=== PATIENT | male | born 1995 | race Caucasian/White ===

== ENCOUNTER 2020-12-29 11:42 | Outpatient (CLI) | payer OTHER ==
[~2020-12-29 11:42] MED LIST: BUFFERED LIDOCAINE 10 ML SYRINGE ONE
[2020-12-29] MEDS ORDERED: GADOBUTROL 7.5 MMOL/7.5 ML VIAL ONE (12:02)
[2020-12-29] MEDS ORDERED: BUFFERED LIDOCAINE 10 ML SYRINGE IU ONE (12:43)
[2020-12-29] MEDS ORDERED: GADOBUTROL 7.5 MMOL/7.5 ML VIAL IVP ONE (12:44)
[2020-12-29] MEDS ORDERED: iohexoL-240 10 ML VIAL IVP ONE (12:45)
--- NOTE | 2020-12-29 14:03 | XRAY Report ---
PROCEDURE: Arthrogram Needle Placement INDICATIONS: LEFT SHOULDER INSTABILITY CONTRAST: CONTRAST: Gadavist, omni FLUOROSCOPY TIME: FLUORO TIME: 0.1 and NUMBER IMAGES: 1 TECHNIQUE: The indications, alternatives, benefits, risks, and complications of the procedure were explained to the patient. Written informed consent was obtained and placed in the chart. The shoulder was examin ed fluoroscopically and a site for needle placement chosen for entry into the glenohumeral joint from an anterior approach. The skin was prepped and draped in the usual fashion, and 1% lidocaine infilt rated from skin down to joint capsule. A spinal needle was inserted into the glenohumeral joint, and a small amount of iodinated contrast media injected to confirm intra-articular placement of the need le tip. This was followed by approximately 10 mL dilute solution of a gadolinium containing MR contr ast agent. The needle was removed and a dressing was applied. The patient was given postprocedural instructions and sent to the MR suite for MR imaging. FINDINGS: A single fluoroscopic spot image demonstrates intra-articular location of injected iodinated contrast . IMPRESSION: Successful fluoroscopically guided administration of dilute Gadolinium solution into the shoulder kash nt for MR arthrogram. Reviewed by: Epifanio Cook MD on 12/29/2020 2:01 PM PDT Approved by: Epifanio Cook MD on 12/29/2020 2:01 PM PDT Station ID: [id number]
--- NOTE | 2020-12-29 17:25 | MRI Report ---
PROCEDURE: Arthrogram Shoulder LT INDICATIONS: LEFT SHOULDER INSTABILITY CONTRAST: 12 mL of diluted intra-articular contrast. TECHNIQUE: After the administration of 12 mL of dilute intra-articular Gadolinium contrast, oblique coronal T1 a nd T2 spin echo with fat saturation, oblique sagittal T1 spin echo with and without fat saturation, o blique sagittal T2 fast spin echo with fat saturation, axial T1 spin echo with fat saturation through the shoulder. COMPARISON: None. FINDINGS: Image quality: Excellent. Rotator cuff: Tendinosis and very low-grade articular surface partial-thickness tear involving anteri or fibers of distal supraspinatus at its insertion on humeral head is seen. Distal infraspinatus and subscapularis tendons are intact. No rotator cuff muscle atrophy on sagittal images. Bones and bursae: No bone marrow contusions or fractures. No acromioclavicular joint degeneration. The acromion demonstrates conventional anatomy, without an os acromiale. Capsule and soft tissues: Subtle signal abnormality and contour irregularity involving posterior labr um at 8 and 9:00 position is seen concerning for posterior labral tear. The glenohumeral ligaments ap pear intact. The long head of the biceps tendon demonstrates normal location and morphology. The ro tator interval appears normal, without fibrosis. The coracohumeral ligament is of normal thickness. No intra-articular bodies. IMPRESSION: 1. Finding is concerning for posterior labral tear at 8 and 9:00 position. 2. Tendinosis and very low-grade articular surface partial-thickness tear involving anterior fibers o f distal supraspinatus at its insertion on humeral head. Reviewed by: Mandeep Arndt MD on 12/29/2020 5:24 PM PDT Approved by: Mandeep Arndt MD on 12/29/2020 5:24 PM PDT Station ID: [id number]
== END 2020-12-29 11:43 | disposition home or self-care (01) ==
LOC: DI 11:42
PROVIDERS: ATTEND Family Medicine
DX: M75.112 Incomplete rotator cuff tear or rupture of left shoulder, not specified as traumatic (principal)
CPT/HCPCS: 23350; 73222; 77002; A9585; Q9966

== ENCOUNTER 2021-03-22 11:08 | Emergency (ER) | payer OTHER ==
[2021-03-22 11:30] VITALS: BP 131/86
--- NOTE | 2021-03-22 13:06 | ED Physician Documentation ---
History of Present Illness - Stated complaint Stated Complaint: COUGH - Chief complaint Chief Complaint: General - History obtained from History obtained from: Patient - Additonal information Additional information: Otherwise healthy 25-year-old gentleman has had about 3 days of sinus drainage, on and off moist versus dry cough. There is no associated body aches or fevers. No shortness of breath. He has been vaccinated against Covid. No known sick contacts no recent travel. Review of Systems Constitutional: denies: Fever, Chills Nose: reports: Rhinorrhea / runny nose, Congestion Throat: denies: Sore throat Cardiac: denies: Chest pain / pressure, Palpitations Respiratory: reports: Cough. denies: Dyspnea PD PAST MEDICAL HISTORY - Present Medications Home Medications: Ambulatory Orders Medication Instructions Recorded Confirmed No Known Home Medications 03/22/21 03/22/21 - Allergies Allergies/Adverse Reactions: Allergies Allergy/AdvReac Type Severity Reaction Status Date / Time No Known Drug Allergies Allergy Verified 03/22/21 11:26 PD ED PE NORMAL - Vitals Vital signs reviewed: Yes - General General: Alert and oriented X 3, No acute distress - HEENT HEENT: PERRL, EOMI, Ears normal, Pharynx benign - Neck Neck: Supple, no meningeal sign, No bony TTP - Cardiac Cardiac: RRR, No murmur - Respiratory Respiratory: No respiratory distress, Clear bilaterally - Abdomen Abdomen: Non tender - Derm Derm: No rash - Neuro Neuro: Alert and oriented X 3, Normal speech Results - Vitals Vitals: Vital Signs - 24 hr 03/22/21 11:26 Temperature 36.6 C Heart Rate 80 Respiratory 18 Rate Blood Pressure 131/86 H O2 Saturation 98 Oxygen O2 Source Room air PD MEDICAL DECISION MAKING - ED course ED course: 25-year-old gentleman with what sounds like a viral URI. No physical findings. No fever or shortness of breath. Conservative management and return precautions were discussed. He declined prescriptions or work note. Departure - Departure Disposition: 01 Home, Self Care Clinical Impression: Viral URI with cough Condition: Good Record reviewed to determine appropriate education?: Yes Instructions: ED URI Viral Comments: As discussed I think it is appropriate to take [id number] remedies such as Sudafed and Primatene Mist. Please return if you develop a fever or shortness of breath for reevaluation.
== END 2021-03-22 13:12 | disposition home or self-care (01) ==
LOC: ED 11:08
DX: J06.9 Acute upper respiratory infection, unspecified (principal); B97.89 Other viral agents as the cause of diseases classified elsewhere
CPT/HCPCS: 99281; 99282

== ENCOUNTER 2022-01-15 15:03 | Emergency (ER) | payer OTHER ==
[2022-01-15 15:11] VITALS: BP 140/76
--- NOTE | 2022-01-15 15:36 | ED Physician Documentation ---
PD HPI OPHTHO - Stated complaint Stated Complaint: R EYE BUMP - Chief complaint Chief Complaint: Heent - History obtained from History obtained from: Patient (10-day history of mildly painful lump superior right eyelid, no history of same. Vision is unaffected.) Review of Systems Constitutional: reports: Reviewed and negative Eyes: reports: Reviewed and negative Cardiac: reports: Reviewed and negative Respiratory: reports: Reviewed and negative PD PAST MEDICAL HISTORY - Past Medical History Cardiovascular: None Respiratory: None Neuro: None Endocrine/Autoimmune: None GI: None : None HEENT: None Psych: None Musculoskeletal: None Derm: None - Past Surgical History Past Surgical History: No - Present Medications Home Medications: Ambulatory Orders Medication Instructions Recorded Confirmed Polymyxin B/Trimeth Ophth Drop 1 drops EACHEYE Q3H 7 Days #1 each 01/15/22 [Polytrim Ophth Drops] cephALEXin [Keflex] 500 mg PO Q6H #28 cap 01/15/22 - Allergies Allergies/Adverse Reactions: Allergies Allergy/AdvReac Type Severity Reaction Status Date / Time No Known Drug Allergies Allergy Verified 01/15/22 15:08 - Social History Does the pt smoke?: No Smoking Status: Never smoker Does the pt drink ETOH?: Yes Does the pt have substance abuse?: No - Immunizations Immunizations are current?: Yes PD ED PE NORMAL - Vitals Vital signs reviewed: Yes - General General: Alert and oriented X 3, No acute distress - HEENT HEENT: PERRL, EOMI, Other (There is a infected appearing stye with mild cellulitis of the upper eyelid on the right mid upper eyelid.) - Neuro Neuro: Alert and oriented X 3, Normal speech Results - Vitals Vitals: Vital Signs - 24 hr 01/15/22 15:08 Temperature 36.5 C Heart Rate 80 Respiratory 16 Rate Blood Pressure 140/76 H O2 Saturation 99 Oxygen O2 Source Room air Departure - Departure Disposition: 01 Home, Self Care Clinical Impression: Stye Qualifiers: Laterality: right Eyelid: upper Qualified Code(s): H00.011 - Hordeolum externum right upper eyelid Condition: Good Record reviewed to determine appropriate education?: Yes Instructions: ED Chal[place] Follow-Up: Steven Min MD [Provider Admit Priv/Credential] - Prescriptions: cephALEXin [Keflex] 500 mg PO Q6H #28 cap Polymyxin B/Trimeth Ophth Drop [Polytrim Ophth Drops] 1 drops EACHEYE Q3H 7 Days #1 each Comments: Follow-up with the eye surgeon, next available appointment. Return for new or worsening symptoms. Call his office for an appointment though.
== END 2022-01-15 15:39 | disposition home or self-care (01) ==
LOC: ED 15:03
DX: H00.011 Hordeolum externum right upper eyelid (principal)
CPT/HCPCS: 99282

== ENCOUNTER 2022-02-22 08:00 | Outpatient (CLI) | payer OTHER ==
[2022-02-22 23:53] LABS: CHLAMYDIA TRACHOMATIS DNA NEGATIVE (NEGATIVE); NEISSERIA GONORRHOEAE DNA NEGATIVE (NEGATIVE)
== END 2022-02-22 23:59 | disposition home or self-care (01) ==
LOC: LAB.N 08:00
PROVIDERS: ATTEND Physician Assistant
DX: R30.0 Dysuria (principal)
CPT/HCPCS: 87491; 87591; 87661

== ENCOUNTER 2022-02-24 16:12 | Outpatient (CLI) | payer OTHER ==
[2022-02-26 05:09] LABS: HIV SCREEN 4TH GENERATION Non Reactive (Non Reactive)
[2022-02-26 06:09] LABS: HCV AB <0.1 s/co ratio (0.0-0.9)
[2022-02-26 07:09] LABS: RPR Non Reactive (Non Reactive)
== END 2022-02-24 16:13 | disposition home or self-care (01) ==
LOC: LAB.N 16:12
PROVIDERS: ATTEND Physician Assistant
DX: R30.0 Dysuria (principal)
CPT/HCPCS: 36415; 86592; 86803; 87389; 87491; 87591; 87661

== ENCOUNTER 2022-02-28 08:00 | Outpatient (CLI) | payer OTHER ==
[2022-02-28 23:28] LABS: CHLAMYDIA TRACHOMATIS DNA NEGATIVE (NEGATIVE); NEISSERIA GONORRHOEAE DNA NEGATIVE (NEGATIVE)
== END 2022-02-28 23:59 | disposition home or self-care (01) ==
LOC: LAB.N 08:00
PROVIDERS: ATTEND Physician Assistant
DX: R30.0 Dysuria (principal)
CPT/HCPCS: 87491; 87591; 87661

== ENCOUNTER 2022-03-02 08:00 | Outpatient (CLI) | payer OTHER | END 2022-03-02 23:59 | disposition home or self-care (01) | LOC: LAB.N 08:00 | PROVIDERS: ATTEND Physician Assistant | DX: R30.0 Dysuria (principal) | CPT/HCPCS: 81599; 87491; 87563; 87591; 87661 ==

== ENCOUNTER 2023-06-02 15:37 | Emergency (ER) | payer OTHER ==
[2023-06-02 15:55] VITALS: BP 132/73; O2SAT 99
--- NOTE | 2023-06-02 16:20 | ED Physician Documentation ---
PD HPI URI - Stated complaint Stated Complaint: SOA/CONGESTION/COUGH - Chief complaint Chief Complaint: Resp - History obtained from History obtained from: Patient - History of Present Illness Timing - onset: How many days ago (3) Timing duration: Days (3) Timing details: Gradual onset Pain level max: 0 Pain level now: 0 Associated symptoms: Nasal congestion, Rhinorrhea, Dry cough. No: Fever, Chills, Sinus pain, Sore throat, Swollen nodes, NVD Contributing factors: Sick contact ([employer]) Improves by: Rest Worsened by: Activity, Breathing Review of Systems GI: denies: Vomiting, Diarrhea Skin: denies: Rash PD PAST MEDICAL HISTORY - Past Medical History Past Medical History: No Cardiovascular: None Respiratory: None Neuro: None Endocrine/Autoimmune: None GI: None : None HEENT: None Psych: None Musculoskeletal: None Derm: None - Past Surgical History Past Surgical History: No - Present Medications Home Medications: Ambulatory Orders Medication Instructions Recorded Confirmed Polymyxin B/Trimeth Ophth Drop 1 drops EACHEYE Q3H 7 Days #1 each 01/15/22 [Polytrim Ophth Drops] cephALEXin [Keflex] 500 mg PO Q6H #28 cap 01/15/22 Albuterol Sulf [Ventolin Hfa 1 - 2 puffs INH Q4HR PRN #1 each 06/02/23 Inhaler] Benzonatate [Tessalon] 200 mg PO TID PRN #30 cap 06/02/23 Cetirizine HCl/Pseudoephedrine 1 tab PO BID PRN #20 tab 06/02/23 [Zyrtec-D ER 5 mg-120 mg Tablet] - Allergies Allergies/Adverse Reactions: Allergies Allergy/AdvReac Type Severity Reaction Status Date / Time No Known Drug Allergies Allergy Verified 06/02/23 15:44 - Social History Does the pt smoke?: No Smoking Status: Never smoker Does the pt drink ETOH?: Yes Does the pt have substance abuse?: No - Immunizations Immunizations are current?: Yes - POLST Patient has POLST: No PD ED PE NORMAL - Vitals Vital signs reviewed: Yes - General General: Alert and oriented X 3, No acute distress - HEENT HEENT: PERRL, Ears normal, Moist mucous membranes, Pharynx benign - Neck Neck: Supple, no meningeal sign - Cardiac Cardiac: RRR, Strong equal pulses - Respiratory Respiratory: No respiratory distress, Other (mild wheezing) - Abdomen Abdomen: Soft, Non tender, Non distended - Derm Derm: Warm and dry - Neuro Neuro: Alert and oriented X 3 - Psych Psych: Normal mood, Normal affect Results - Vitals Vitals: Vital Signs - 24 hr 06/02/23 06/02/23 15:45 16:30 Temperature 36.6 C Heart Rate 66 64 Respiratory 16 18 Rate Blood Pressure 132/73 H O2 Saturation 99 Oxygen O2 Source Room air PD Medical Decision Making - ED course Complexity details: re-evaluated patient, considered differential, d/w patient ED course: Patient is well-appearing, nontoxic. Afebrile. Has mild wheezing on auscultation of the lungs. He was given a nebulizer treatment here and breathing much improved. Appears to have a viral upper respiratory infection. No evidence of pneumonia clinically. No evidence of sepsis. We will place the patient on cough medication and decongestants for home as well as albuterol. Will have him follow-up with his doctor for further care. Patient counseled regarding signs and symptoms for which I believe and urgent re-evaluation would be necessary. Patient with good understanding of and agreement to plan and is comfortable going home at this time This document was made in part using voice recognition software. While efforts are made to proofread this document, sound alike and grammatical errors may occur. Departure - Departure Disposition: 01 Home, Self Care Clinical Impression: Viral URI Condition: Good Instructions: ED Viral Syndrome Follow-Up: ZELDA BERGMAN DO [Primary Care Provider] - Within 1 week Prescriptions: Albuterol Sulf [Ventolin Hfa Inhaler] 1 - 2 puffs INH Q4HR PRN #1 each PRN Reason: Shortness Of Air/Wheezing Benzonatate [Tessalon] 200 mg PO TID PRN #30 cap PRN Reason: Cough Cetirizine HCl/Pseudoephedrine [Zyrtec-D ER 5 mg-120 mg Tablet] 1 tab PO BID PRN #20 tab PRN Reason: nasal congestion Comments: Your prescriptions were sent to [facility] in [place]. Please follow-up with your doctor for further care as needed. Please return if you worsen. Forms: PCP List Discharge Date/Time: 06/02/23 17:20
[2023-06-02] MEDS: ALBUTEROL NEB 2.5 MG/3 ML INH STA (16:27)
== END 2023-06-02 17:20 | disposition home or self-care (01) ==
LOC: ED 15:37
DX: J06.9 Acute upper respiratory infection, unspecified (principal)
CPT/HCPCS: 94640; 94664; 99283

== ENCOUNTER 2023-07-12 15:43 | Emergency (ER) | payer OTHER ==
[2023-07-12 16:05] VITALS: BP 121/78; O2SAT 100
--- NOTE | 2023-07-12 16:57 | ED Physician Documentation ---
History of Present Illness - Stated complaint Stated Complaint: COUGH/VIRAMONTES/BODY ACHES - Chief complaint Chief Complaint: Heent - Additonal information Additional information: 27-year-old male presents emergency department for about 1 week of cough congestion runny nose. Patient says that he is prone to getting bronchitis. He is up-to-date with all of his childhood immunizations. Patient says that he is having constant runny nose, mild head pressure, headaches, no recent fevers or chills no nausea or vomiting no diarrhea, he does state that when he blows his nose it is bright green. He is here with his girlfriend who is coming into the emergency department for same symptoms. PD PAST MEDICAL HISTORY - Past Medical History Cardiovascular: None Respiratory: None Neuro: None Endocrine/Autoimmune: None GI: None : None HEENT: None Psych: None Musculoskeletal: None Derm: None - Past Surgical History Past Surgical History: No - Present Medications Home Medications: Ambulatory Orders Medication Instructions Recorded Confirmed Amox/Clav 875/125 [Augmentin 1 tablet PO Q12H 7 Days #14 tablet 07/12/23 875/125 Tab] - Allergies Allergies/Adverse Reactions: Allergies Allergy/AdvReac Type Severity Reaction Status Date / Time No Known Drug Allergies Allergy Verified 06/02/23 15:44 - Social History Does the pt smoke?: No Smoking Status: Never smoker Does the pt drink ETOH?: Yes Does the pt have substance abuse?: No - Immunizations Immunizations are current?: Yes - POLST Patient has POLST: No PD ED PE NORMAL - Vitals Vital signs reviewed: Yes - General General: Alert and oriented X 3, No acute distress, Well developed/nourished - HEENT HEENT: PERRL, EOMI, Ears normal, Moist mucous membranes - Neck Neck: Supple, no meningeal sign, No bony TTP - Cardiac Cardiac: RRR, No murmur, Strong equal pulses - Respiratory Respiratory: No respiratory distress, Clear bilaterally Results - Vitals Vitals: Vital Signs - 24 hr 07/12/23 15:55 Temperature 36.4 C L Heart Rate 85 Respiratory 16 Rate Blood Pressure 121/78 O2 Saturation 100 Oxygen O2 Source Room air - Labs Labs: Laboratory Tests 07/12/23 15:59 Nasal Adenovirus (PCR) NOT DETECTED Nasal B. parapertussis DNA (PCR) NOT DETECTED Nasal Coronavir 229E PCR NOT DETECTED Nasal Coronavir HKU1 PCR DETECTED A Nasal Coronavir NL63 PCR NOT DETECTED Nasal Coronavir OC43 PCR NOT DETECTED Nasal Enterovir/Rhinovir PCR NOT DETECTED Nasal Influenza B PCR NOT DETECTED Nasal Influenza A PCR NOT DETECTED Nasal Parainfluen 1 PCR NOT DETECTED Nasal Parainfluen 2 PCR NOT DETECTED Nasal Parainfluen 3 PCR NOT DETECTED Nasal Parainfluen 4 PCR NOT DETECTED Nasal RSV (PCR) NOT DETECTED Nasal B.pertussis DNA PCR NOT DETECTED Nasal C.pneumoniae (PCR) NOT DETECTED Osmar Human Metapneumo PCR NOT DETECTED Nasal M.pneumoniae (PCR) NOT DETECTED Nasal SARS-CoV-2 (PCR) NOT DETECTED PD Medical Decision Making - ED course ED course: 27-year-old male presents emergency department for signs and symptoms of upper respiratory infection. Respiratory panel came back positive for coronavirus. Patient was informed of these results. Patient is worried that he might have a sinus infection, I informed the patient that I would be happy to write him a pre scription of Augmentin but that I would recommend giving it a couple more days with addition of medication Sudafed to his regimen as well as doing some sinonasal rinses. Patient is primary care provider that he was informed to follow-up with outpatient as needed prescription of Augmentin sent to his preferred pharmacy he was told to not take it unless he needs it and to wait another 2 to 3 days and agrees with this plan. Departure - Departure Disposition: 01 Home, Self Care Clinical Impression: Sinus pressure URI (upper respiratory infection) Qualifiers: URI type: unspecified viral URI Qualified Code(s): J06.9 - Acute upper respiratory infection, unspecified Condition: Good Instructions: ED URI Viral Prescriptions: Amox/Clav 875/125 [Augmentin 875/125 Tab] 1 tablet PO Q12H 7 Days #14 tablet Comments: Thank you for trusting us with your care. If in a couple days you are still having increased sinus pressure and green/yellow phlegm in your cough and your sinuses you can tack picker your prescription of Augmentin at [facility]. I would also consider adding Sudafed to your regimen once a day to help with your sinus pressure as well as a Krystle pot to help clear your sinuses just make sure that you are always using sterile water with these. Please come back to the emergency department for having fevers and chills it is lasting longer than 5 days, please follow-up with your primary care provider as needed. Forms: PCP List Discharge Date/Time: 07/12/23 17:07
[2023-07-12 17:20] LABS: B. PARAPERTUSSIS- RESP PCR PAN NOT DETECTED; B. PERTUSSIS- RESP PCR PANEL NOT DETECTED; C. PNEUMONIAE- RESP PCR PANEL NOT DETECTED; CORONAVIRUS 229E-RESP PCR NOT DETECTED; CORONAVIRUS HKU1-RESP PCR DETECTED; CORONAVIRUS NL63-RESP PCR NOT DETECTED; CORONAVIRUS OC43-RESP PCR NOT DETECTED; HUMAN METAPNEUMOVIRUS NOT DETECTED; INFLUENZA A- RESP PCR PANEL NOT DETECTED; INFLUENZA B - RESP PCR PANEL NOT DETECTED; M. PNEUMONIAE- RESP PCR PANEL NOT DETECTED; PARAINFLUENZA VIRUS 1 NOT DETECTED; PARAINFLUENZA VIRUS 2 NOT DETECTED; PARAINFLUENZA VIRUS 3 NOT DETECTED; PARAINFLUENZA VIRUS 4 NOT DETECTED; RHINOVIRUS/ENTEROVIRUS NOT DETECTED; RSV- RESP PCR PANEL NOT DETECTED; SARS-CoV-2 -RESP PCR PANEL NOT DETECTED
== END 2023-07-12 17:07 | disposition home or self-care (01) ==
LOC: ED 15:43
DX: J06.9 Acute upper respiratory infection, unspecified (principal); B97.29 Other coronavirus as the cause of diseases classified elsewhere; J34.89 Other specified disorders of nose and nasal sinuses
CPT/HCPCS: 87633; 99283

== ENCOUNTER 2023-11-03 14:52 | Emergency (ER) | payer OTHER ==
[2023-11-03 15:04] VITALS: BP 125/75; O2SAT 100
--- NOTE | 2023-11-03 16:40 | ED Physician Documentation ---
PD HPI LOWER EXT INJURY - Stated complaint Stated Complaint: LT FINGER SWELLING - Chief complaint Chief Complaint: Ext Problem - History obtained from History obtained from: Patient (3 days painful swelling of the left index finger. No specific injury.) PD PAST MEDICAL HISTORY - Past Medical History Past Medical History: No Cardiovascular: None Respiratory: None Neuro: None Endocrine/Autoimmune: None GI: None : None HEENT: None Psych: None Musculoskeletal: None Derm: None - Past Surgical History Past Surgical History: No - Present Medications Home Medications: Ambulatory Orders Medication Instructions Recorded Confirmed Amox/Clav 875/125 [Augmentin 1 tablet PO Q12H 7 Days #14 tablet 07/12/23 875/125 Tab] Amox/Clav 875/125 [Augmentin] 1 each PO Q12H #14 tablet 11/03/23 - Allergies Allergies/Adverse Reactions: Allergies Allergy/AdvReac Type Severity Reaction Status Date / Time No Known Drug Allergies Allergy Verified 11/03/23 16:12 - Social History Does the pt smoke?: No Smoking Status: Never smoker Does the pt drink ETOH?: Yes Does the pt have substance abuse?: No - Immunizations Immunizations are current?: Yes - POLST Patient has POLST: No PD ED PE NORMAL - Vitals Vital signs reviewed: Yes - General General: Alert and oriented X 3, No acute distress - Extremities Extremities: Other (Large paronychia of the left index finger with mild cellulitis.) - Neuro Neuro: Alert and oriented X 3 Results - Vitals Vitals: Vital Signs - 24 hr 11/03/23 14:58 Temperature 36.9 C Heart Rate 77 Respiratory 16 Rate Blood Pressure 125/75 O2 Saturation 100 Oxygen O2 Source Room air Procedures - Abscess I&D (location) L 2nd finger paronychia Preparation: Lidocaine 1% Incision: Incised with scalpel, Purulent drainage Other: Dressing applied, Antibiotic prescribed Departure - Departure Disposition: 01 Home, Self Care Clinical Impression: Paronychia Condition: Good Record reviewed to determine appropriate education?: Yes Instructions: ED Fingernail Infec Prescriptions: Amox/Clav 875/125 [Augmentin] 1 each PO Q12H #14 tablet Comments: I sent your prescription electronically to the [facility] in [place]. Do warm soaks a few times a day. If the pus recollects please return for reevaluation. 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 Forms: PCP List
== END 2023-11-03 17:14 | disposition home or self-care (01) ==
LOC: ED 14:52
DX: L03.012 Cellulitis of left finger (principal)
CPT/HCPCS: 26010